=== PATIENT | female | born 1995 | race Two or more races ===

== ENCOUNTER 2016-10-07 21:09 | Emergency (ER) | payer MEDICAID ==
[~2016-10-07] VITALS: Ht 157.5 cm; Wt 60.3 kg
[2016-10-07 22:10] VITALS: BP 147/94
[2016-10-08] MEDS ORDERED: IBUPROFEN 600 MG TAB PO ONE (00:45)
[2016-10-08] MEDS ORDERED: CYCLOBENZAPRINE HCL 10 MG TAB PO ONE (00:45)
== END 2016-10-08 01:14 | disposition home or self-care (01) ==
LOC: ER 21:19
DX: S46.812A Strain of other muscles, fascia and tendons at shoulder and upper arm level, left arm, initial encounter (principal); M54.6 Pain in thoracic spine; M54.2 Cervicalgia; V49.9XXA Car occupant (driver) (passenger) injured in unspecified traffic accident, initial encounter; Y93.89 Activity, other specified; Y99.8 Other external cause status; Y92.89 Other specified places as the place of occurrence of the external cause

== ENCOUNTER 2016-10-26 06:20 | Emergency (ER) | payer MEDICAID ==
[~2016-10-26] VITALS: Ht 157.5 cm; Wt 63.0 kg
[2016-10-26 06:33] VITALS: BP 128/81
== END 2016-10-26 07:57 | disposition home or self-care (01) ==
LOC: ER 06:22
DX: N39.0 Urinary tract infection, site not specified (principal)
CPT/HCPCS: 81002